=== PATIENT | male | born 1930 | race Caucasian/White ===

== ENCOUNTER 2016-08-28 08:43 | Emergency (ER) | payer MEDICARE, OTHER | END 2016-08-28 10:44 | disposition home or self-care (01) | LOC: ER1 08:43 | DX: S93.401A Sprain of unspecified ligament of right ankle, initial encounter (principal); X50.1XXA Overexertion from prolonged static or awkward postures, initial encounter; Y92.480 Sidewalk as the place of occurrence of the external cause; I10 Essential (primary) hypertension; Z88.0 Allergy status to penicillin | CPT/HCPCS: 73610; 99283 ==

== ENCOUNTER 2016-09-02 13:03 | Emergency (ER) | payer MEDICARE, OTHER | END 2016-09-02 15:10 | disposition left against medical advice (07) | LOC: ER1 13:03 | DX: Z53.21 Procedure and treatment not carried out due to patient leaving prior to being seen by health care provider (principal) ==

== ENCOUNTER 2016-10-05 11:06 | Emergency (ER) | payer MEDICARE, OTHER | END 2016-10-05 14:30 | disposition home or self-care (01) | LOC: ER1 11:06 | DX: S46.212A Strain of muscle, fascia and tendon of other parts of biceps, left arm, initial encounter (principal); Z88.0 Allergy status to penicillin; Z79.82 Long term (current) use of aspirin; X50.0XXA Overexertion from strenuous movement or load, initial encounter | CPT/HCPCS: 93971; 99283 ==